=== PATIENT | male | born 1985 | race African-American/Black ===

== ENCOUNTER 2017-03-28 17:10 | Emergency (ER) | payer OTHER ==
[~2017-03-28] VITALS: Ht 185.4 cm; Wt 77.0 kg
[~2017-03-28 17:10] MED LIST: Z.0.NO CURRENT MEDS
[2017-03-28 17:26] VITALS: BP 148/102; PULSE 83; RESP 16; TEMP 98.1; O2SAT 97
--- NOTE | 2017-03-28 17:44 | PD ---
HPI Chief Complaint: Complaint Time Seen by Provider: 17:42 Travel History International Travel<30 days: No Contact w/Intl Traveler<30days: No Traveled to known affect area: No History of Present Illness HPI 31-year-old male presents to the emergency Department with complaint of burning with urination and penile discharge 2 days. Unknown exposure to STDs. Denies abdominal pain, fever. Denies testicular pain, testicular swelling. Denies penile pain, penile swelling. Has not taken any medications or tried any treatments to alleviate symptoms. Symptoms are mild in severity. No known aggravating or relieving factors. No known allergies. Has no other medical complaints. No other modifying factors or associated signs and symptoms. PFSH Past Medical History Diminished Hearing: No Social History Alcohol Use: No Tobacco Use: Yes (1 PPD) Substance Use: No Allergies-Medications (Allergen,Severity, Reaction): Coded Allergies: No Known Allergies (Verified Adverse Reaction, Unknown, 03/28/17) Reported Meds & Prescriptions Reported Meds & Active Scripts Active No Active Prescriptions or Reported Medications Review of Systems Except as stated in HPI: all other systems reviewed are Neg Physical Exam Narrative GENERAL: Well-nourished, well-developed black male patient, in no acute distress SKIN: Warm and dry. HEAD: Atraumatic. Normocephalic. EYES: Pupils equal and round. ENT: Mucosa pink and moist. NECK: Trachea midline. No lymphadenopathy. CARDIOVASCULAR: Regular rate . RESPIRATORY: No accessory muscle use. GASTROINTESTINAL: Flat. GENITOURINARY: Exam done in the presence of a nurse. Uncircumcised. Testes descended bilaterally without evidence of rotation. No lesions or erythema. Milky, white urethral discharge. MUSCULOSKELETAL: No obvious deformities. No clubbing. No cyanosis. No edema. NEUROLOGICAL: Awake and alert. Oriented 3. No obvious cranial nerve deficits. Motor grossly within normal limits. Normal speech. Moves all extremities. 5/5 strength to all extremities. PSYCHIATRIC: Appropriate mood and affect; insight and judgment normal. Data Data Last Documented VS Vital Signs Date Time Temp Pulse Resp B/P (MAP) Pulse Ox O2 Delivery O2 Flow Rate FiO2 03/28/17 17:26 98.1 83 16 148/102 (117) 97 Orders Orders Gc And Chlamydia Pcr (03/28/17 17:45) Ceftriaxone Inj (Rocephin Inj) (03/28/17 17:45) Lidocaine 1% Inj (50 Ml) (Xylocaine 1% I (03/28/17 17:45) Metronidazole (Flagyl) (03/28/17 17:45) Azithromycin (Zithromax) (03/28/17 17:45) Ed Discharge Order (03/28/17 18:12) Labs Laboratory Tests Test 03/28/17 18:00 [facility] Medical Decision Making Medical Screen Exam Complete: Yes Emergency Medical Condition: Yes Medical Record Reviewed: Yes Differential Diagnosis Urethritis, chlamydia, gonorrhea, Trichomonas Narrative Course 31-year-old male with urethral discharge and dysuria. Patient empirically treated with Rocephin, azithromycin, Flagyl in the emergency department. Urinalysis ordered. Chlamydia and gonorrhea pending. Instructed patient to follow up at health department for complete STD screening. Instructed patient to follow up with primary care provider. Patient verbalizes understanding and agreement with treatment plan. Patient is medically cleared and stable for discharge. Discussed reasons to return to the emergency department. Patient agrees with treatment plan. The patients vital signs are stable and the patient is stable for outpatient follow-up and treatment. Patient discharged home, stable and in no acute distress. Diagnosis Primary Impression: Urethritis Referrals: [facility] Primary Care Physician [facility] Dept. Patient Instructions: Chlamydia (ED), General Instructions, Gonorrhea (ED), Nonspecific Urethritis in Men (ED), Sexually Transmitted Diseases (ED), Trichomoniasis (ED) Additional Instructions: Avoid sexual activity for 14 days No sexual activity with exposed sex partners until 14 days after they have been treated Inform all sexual partners within the past 3-6 months that they need to be evaluated and treated Use condoms every time you have sex You were treated for chlamydia, gonorrhea and Trichomonas in the ER Follow-up with primary care provider Return to the emergency department immediately with worsening of symptoms Med/Other Pt SpecificInfo: No Meds Exist/No RX given Scripts No Active Prescriptions or Reported Meds Disposition: 01 DISCHARGE HOME Condition: Stable Brittany Talamantes Mar 28, 2017 17:44
[2017-03-28] MEDS ORDERED: cefTRIAXone 250 MG VIAL IM ONE (17:45)
[2017-03-28] MEDS ORDERED: LIDOCAINE HCL 1% 50 ML VIAL IM ONE (17:45)
[2017-03-28] MEDS ORDERED: metroNIDAZOLE 500 MG TAB PO ONE (17:45)
[2017-03-28] MEDS ORDERED: AZITHROMYCIN 250 MG TAB PO ONE (17:45)
[2017-03-28 21:09] LABS: CHLAMYDIA PCR NOT DETECTED (NOT DETECT); NEISSERIA PCR DETECTED (NOT DETECT)
== END 2017-03-28 18:54 | disposition home or self-care (01) ==
LOC: PHEFT 17:10
DX: N34.2 Other urethritis (principal); F17.200 Nicotine dependence, unspecified, uncomplicated
CPT/HCPCS: 87491; 87591; 96372; 99284; J0696